=== PATIENT | female | born 1995 | race Two or more races ===

== ENCOUNTER 2020-04-02 18:03 | Emergency (ER) | payer OTHER ==
[~2020-04-02] VITALS: Ht 165.1 cm; Wt 159.0 kg
[2020-04-02 18:22] VITALS: BP 160/93
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
[2020-04-02] MEDS ORDERED: NAPR-514 PO (22:14)
[2020-04-02] MEDS ORDERED: CYCL10TA2 PO (22:14)
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
== END 2020-04-02 22:31 | disposition home or self-care (01) ==
LOC: ER 18:03
DX: S80.11XA Contusion of right lower leg, initial encounter (principal); S16.1XXA Strain of muscle, fascia and tendon at neck level, initial encounter; M79.602 Pain in left arm; M25.512 Pain in left shoulder; M79.645 Pain in left finger(s); M25.521 Pain in right elbow; I10 Essential (primary) hypertension; Z98.890 Other specified postprocedural states; V49.9XXA Car occupant (driver) (passenger) injured in unspecified traffic accident, initial encounter; Y93.89 Activity, other specified; Y92.413 State road as the place of occurrence of the external cause; Y99.8 Other external cause status
CPT/HCPCS: 73030; 73060; 73080; 73140; 73562; 73590; 81025; 99284